=== PATIENT | male | born 1950 | race Caucasian/White ===

== ENCOUNTER 2018-04-18 17:41 | Emergency (ER) | payer SELFPAY ==
[2018-04-18] MEDS ORDERED: HYDROmorphone 0.5 MG/0.5 ML Syringe IVPUSH ONE ×2 (19:06→20:53)
[2018-04-18] MEDS ORDERED: Sodium Chloride 0.9% 10 ML Syringe FLUSH PRN (19:06)
[2018-04-18] MEDS ORDERED: Ondansetron 4 MG/2 ML SDV IVPUSH ONE (19:06)
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
== END 2018-04-18 22:22 | disposition home or self-care (01) ==
LOC: JP.ED 17:41
DX: S13.4XXA Sprain of ligaments of cervical spine, initial encounter (principal); S29.012A Strain of muscle and tendon of back wall of thorax, initial encounter; V89.2XXA Person injured in unspecified motor-vehicle accident, traffic, initial encounter; S50.02XA Contusion of left elbow, initial encounter; S40.811A Abrasion of right upper arm, initial encounter; S40.812A Abrasion of left upper arm, initial encounter
CPT/HCPCS: 36415; 72125; 72128; 74176; 80053; 85025; 96374; 96375; 96376; 99284; J1170; J2405; J7050; 99283

== ENCOUNTER 2023-01-23 07:05 | Day surgery (SDC) | payer MEDICARE, BC ==
[~2023-01-23 07:05] MED LIST: Sodium Chloride 0.9% 1,000 ML IV SCH
[2023-01-23] MEDS ORDERED: Propofol 200 MG/20 ML SDV ONE ×2 (07:18→10:41)
[2023-01-23] MEDS ORDERED: fentaNYL 100 MCG/2 ML SDV ONE (07:19)
== END 2023-01-23 12:21 | disposition home or self-care (01) ==
LOC: JP.SDS 07:05
PROVIDERS: ATTEND Internal Medicine
DX: Z12.11 Encounter for screening for malignant neoplasm of colon (principal); I10 Essential (primary) hypertension; F90.9 Attention-deficit hyperactivity disorder, unspecified type; E66.9 Obesity, unspecified; G47.33 Obstructive sleep apnea (adult) (pediatric); Z68.36 Body mass index [BMI] 36.0-36.9, adult
CPT/HCPCS: J2704; J3010; J7030

== ENCOUNTER 2023-06-16 09:33 | Day surgery (SDC) | payer MEDICARE, BC ==
[~2023-06-16 09:33] MED LIST changes: +Lactated Ringers 1,000 ML IV SCH; +Midazolam 1 MG/ML 2 ML SDV ONE; +Nozin Nasal Sanitizer NASBOTH ONE; +Propofol 200 MG/20 ML SDV ONE; -Sodium Chloride 0.9% 1,000 ML IV SCH; +Tranexamic Acid 1,000 MG in Sodium Chloride 0.9% 50 ML IV ONE; +fentaNYL 100 MCG/2 ML SDV ONE
[2023-06-16 09:49] LABS: HEMATOCRIT 41.1 % (38.4-49.7); HEMOGLOBIN 13.6 g/dL (12.9-16.9); MEAN CORPUSCULAR HEMOGLOBIN 28.7 pg (31.6-35.5); MEAN CORPUSCULAR HGB CONC 33.1 g/dL (31.6-35.5); MEAN CORPUSCULAR VOLUME 86.7 fL (81.4-99.0); RED BLOOD CELL COUNT 4.74 M/uL (4.14-5.76); WHITE BLOOD CELL COUNT,WBC 5.1 K/uL (3.2-11.0)
[2023-06-16] MEDS ORDERED: Bupivacaine 0.5% 50 ML MDV ONE (09:57)
[2023-06-16] MEDS ORDERED: ceFAZolin 2 GM in Premix Bag 1 BAG IV ONE (10:00)
[2023-06-16 10:10] LABS: ALANINE AMINOTRANSFERASE,ALT 34 U/L (12-78); ALBUMIN 3.6 g/dL (3.4-5.0); ALKALINE PHOSPHATASE 105 U/L (46-116); ASPARTATE AMNIOTRANSFERASE,AST 21 U/L (15-37); BILIRUBIN TOTAL 0.9 mg/dL (0.2-1.0); BLOOD UREA NITROGEN,BUN 12 mg/dL (7-18); CALCIUM 9.1 mg/dL (8.5-10.1); CARBON DIOXIDE,CO2 30 mmol/L (21-32); CHLORIDE,CL 104 mmol/L (100-108); CREATININE 0.8 mg/dL (0.8-1.3); EST CRCL DRUG DOSING (CG) 87.45 mL/min; ESTIMATED GFR 95 mL/min (>60); GLUCOSE RANDOM 106 mg/dL (74-106); POTASSIUM,K 4.3 mmol/L (3.6-5.2); PROTEIN TOTAL,TP 7.4 g/dL (6.4-8.2); SODIUM,NA 139 mmol/L (140-148)
[2023-06-16 10:12] LABS: ANION GAP 9.3 mmol/L (5.0-14.0)
[2023-06-16] MEDS ORDERED: fentaNYL 100 MCG/2 ML SDV ONE (13:01)
[2023-06-16] MEDS ORDERED: Propofol 200 MG/20 ML SDV ONE (13:01)
[2023-06-16] MEDS ORDERED: Midazolam 1 MG/ML 2 ML SDV ONE (13:02)
[2023-06-16] MEDS ORDERED: Ondansetron 4 MG/2 ML SDV IVPUSH PRN (14:38)
[2023-06-16] MEDS ORDERED: Docusate Sodium 100 MG Cap PO PRN (14:38)
[2023-06-16] MEDS ORDERED: Magnesium Hydroxide 400 MG/5 ML Susp 30 ML Cup PO PRN (14:38)
[2023-06-16] MEDS ORDERED: oxyCODONE 5 MG Tab PO PRN (14:41)
[2023-06-16] MEDS ORDERED: Diazepam 5 MG Tab PO PRN (14:43)
[2023-06-16] MEDS ORDERED: Sodium Chloride 0.9% 1,000 ML IV SCH (14:45)
[2023-06-16] MEDS ORDERED: traZODone 50 MG Tab PO PRN (15:08)
[2023-06-16] MEDS: Acetaminophen 325 MG Tab PO SCH ×2 (16:50→21:15)
[2023-06-16] MEDS: Amphetamine/Dextroamphetamine Salts 10 MG Tab PO SCH (16:51)
[2023-06-16] MEDS: Ketorolac 30 MG/ML SDV IVPUSH PRN (18:59)
[2023-06-16] MEDS: Morphine 2 MG/ML SYRINGE IVPUSH PRN ×2 (19:24→21:59)
[2023-06-16] MEDS: ceFAZolin 2 GM in Premix Bag 1 BAG IV SCH (20:03)
[2023-06-16] MEDS ORDERED: PROPRANOLOL HCL 20 MG PO SCH (21:00)
[2023-06-16] MEDS: Nozin Nasal Sanitizer NASBOTH SCH (21:15)
[2023-06-16] MEDS: Aspirin 325 MG Tab.EC PO SCH (21:16)
[2023-06-16] MEDS: FLUoxetine 20 MG Cap PO SCH (21:16)
[2023-06-17] MEDS: oxyCODONE 5 MG Tab PO PRN ×3 (00:03→13:26)
[2023-06-17] MEDS: Morphine 2 MG/ML SYRINGE IVPUSH PRN ×2 (01:33→05:02)
[2023-06-17] MEDS: ceFAZolin 2 GM in Premix Bag 1 BAG IV SCH ×2 (03:37→11:35)
[2023-06-17] MEDS: Acetaminophen 325 MG Tab PO SCH ×3 (03:38→15:58)
[2023-06-17] MEDS ORDERED: Amphetamine/Dextroamphetamine Salts 10 MG Tab PO SCH (09:00)
[2023-06-17] MEDS ORDERED: Losartan 50 MG Tab PO SCH (09:00)
[2023-06-17] MEDS ORDERED: atorvaSTATin 20 MG Tab PO SCH (09:00)
[2023-06-17] MEDS: Ketorolac 30 MG/ML SDV IVPUSH PRN (10:02)
[2023-06-17] MEDS: Aspirin 325 MG Tab.EC PO SCH (10:06)
[2023-06-17] MEDS: Nozin Nasal Sanitizer NASBOTH SCH (10:06)
[2023-06-17] MEDS: FLUoxetine 20 MG Cap PO SCH (10:07)
[2023-06-17] MEDS: Amphetamine/Dextroamphetamine Salts 10 MG Tab PO SCH ×2 (10:48→15:59)
== END 2023-06-17 17:38 | disposition home or self-care (01) ==
LOC: JP.SDS 09:33 → JP.MS 14:38 → JP.SDS 06-17 17:38
PROVIDERS: ATTEND Specialist
DX: M25.561 Pain in right knee (principal); M17.11 Unilateral primary osteoarthritis, right knee; F41.9 Anxiety disorder, unspecified; I10 Essential (primary) hypertension; M48.062 Spinal stenosis, lumbar region with neurogenic claudication; E78.5 Hyperlipidemia, unspecified; E66.9 Obesity, unspecified; M35.3 Polymyalgia rheumatica; G47.33 Obstructive sleep apnea (adult) (pediatric)
CPT/HCPCS: 27447; 36415; 73560; 80053; 85027; 97110; 97116; 97161; A9270; C1713; C1776; J0690; J1885; J2250; J2270; J2704; J3010; J3490; J7120; U0002